=== PATIENT | female | born 1975 ===

== ENCOUNTER 2017-08-04 08:02 | Emergency (ER) | payer BC ==
[2017-08-04 08:35] VITALS: BP 127/80
[2017-08-04] MEDS ORDERED: Fluorescein Sod TOPICAL 0.6* 0.6 MG TEST OPHTHALMIC ONE (09:02)
[2017-08-04] MEDS ORDERED: BSS OPTH.SOL* BTL OPHTHALMIC ONE (09:02)
--- NOTE | 2017-08-04 09:11 | UC ---
Eye Complaint HPI - HPI Summary HPI Summary: Patient got poked in right eye by a house plant while cleaning 2 days ago has continued pain and clear drainage from her right eye - History of Current Complaint Chief Complaint: UCEye Stated Complaint: (R) EYE COMPLAINT Time Seen by Provider: 08/04/17 08:57 Hx Obtained From: Patient Hx Last Menstrual Period: 08/02/17 ?: No Onset/Duration: Sudden Onset, Lasting Days - 2 Timing: Constant Severity Initially: Moderate Severity Currently: Moderate Pain Intensity: 6 Pain Scale Used: 0-10 Numeric Character: Throbbing Aggravating Factor(s): Light Alleviating Factor(s): Nothing Associated Signs And Symptoms: Positive: Drainage (Clear) - Allergies/Home Medications Allergies/Adverse Reactions: Allergies Allergy/AdvReac Type Severity Reaction Status Date / Time SEASONAL Allergy Unknown Unknown Uncoded 08/04/17 08:26 Reaction Details Home Medications: Home Medications S-Adenosylmethionine Sul Tosyl [Tu-E] 400 mg PO 08/04/17 [History] Vitamin B Complex CAP* [B Complex CAP*] 1 cap PO DAILY 08/04/17 [History Confirmed 08/04/17] PMH/Surg Hx/FS Hx/Imm Hx Previously Healthy: Yes - Surgical History Surgical History: None - Family History Known Family History: Positive: None - Social History Occupation: Employed Full-time - Hairdresser Lives: With Family Alcohol Use: Rare Substance Use Type: None Smoking Status (MU): Never Smoked Tobacco Review of Systems Constitutional: Negative - R is Skin: Negative Eyes: Drainage - Thedo, Eye Redness - od ENT: Negative Respiratory: Negative Cardiovascular: Negative Gastrointestinal: Negative Genitourinary: Negative Motor: Negative Neurovascular: Negative Musculoskeletal: Negative Neurological: Negative Psychological: Negative Is Patient Immunocompromised?: No All Other Systems Reviewed And Are Negative: Yes Physical Exam Triage Information Reviewed: Yes Appearance: Well-Appearing, No Pain Distress, Well-Nourished Vital Signs: Initial Vital Signs Temp 98.3 F 08/04/17 08:27 Pulse 64 08/04/17 08:27 Resp 18 08/04/17 08:27 BP 127/80 08/04/17 08:27 Pulse Ox 100 08/04/17 08:27 Vital Signs Reviewed: Yes Eye Exam: Normal - os Eyes: Positive: Conjunctiva Inflamed, Discharge - clear, Other: - eye stained -- -samll corneal abrasion at 12:00, perrla eomi bilaterally ENT Exam: Normal ENT: Positive: Normal ENT inspection, Hearing grossly normal. Negative: Trismus , Muffled voice, Hoarse voice Dental Exam: Normal Neck exam: Normal Neck: Positive: Supple, Nontender Respiratory Exam: Normal Respiratory: Positive: No respiratory distress, No accessory muscle use Cardiovascular Exam: Normal Cardiovascular: Positive: Brisk Capillary Refill Musculoskeletal Exam: Normal Musculoskeletal: Positive: Strength Intact, ROM Intact, No Edema Neurological Exam: Normal Neurological: Positive: Alert, Muscle Tone Normal Psychological Exam: Normal Skin Exam: Normal Eye Complaint Course/Dx - Course Course Of Treatment: Tylenol/ ibuprofen for pain, Polytrim eyedrops, follow up with Dr. Subramanian if needed - Differential Dx/Diagnosis Provider Diagnoses: OD corneal abrasion Discharge - Sign-Out/Discharge Documenting (check all that apply): Discharge - Discharge Plan Condition: Stable Disposition: HOME Prescriptions: Polymyx/Trimethoprim OPTH* [Polytrim OPHTH*] 1 drop RIGHT EYE Q4H #1 btl Patient Education Materials: Corneal Abrasion (ED), How to Use Eye Drops (ED) Referrals: Hugh Subramanian MD [Medical Doctor] - If Needed - Billing Disposition and Condition Condition: STABLE Disposition: HOME
== END 2017-08-04 09:20 | disposition home or self-care (01) ==
LOC: UCCORT 08:02
DX: S05.01XA Injury of conjunctiva and corneal abrasion without foreign body, right eye, initial encounter (principal); W22.8XXA Striking against or struck by other objects, initial encounter; Y93.E9 Activity, other interior property and clothing maintenance; Y92.9 Unspecified place or not applicable
CPT/HCPCS: 99202; A9270-GY; G0463